=== PATIENT | male | born 2000 | race Caucasian/White ===

== ENCOUNTER 2024-11-04 04:46 | Emergency (ER) | payer BC, SELFPAY ==
[2024-11-04 04:50] VITALS: BP 137/89
[2024-11-04 05:11] VITALS: BMI 29.0
--- NOTE | 2024-11-04 06:04 | ED.GENMED ---
History of Present Illness
General
Chief Complaint: Musculo-Skeletal Complaint
Time Seen by Provider: 11/04/24 06:04
History of Present Illness
History of Present Illness:
TIME OF INITIAL ENCOUNTER: 6:05 AM
HPI: The patient presents with approximately 36 hours of distal left inner thigh pain. There is no associated swelling. He has no shortness of breath. He has a history of muscular dystrophy primarily affecting his range of motion and strength in
the upper extremities. He denies any injury.
EXAM:
GENERAL: Well appearing in no distress
HEENT: Moist oral mucosa
CARDIOVASCULAR: No murmurs, normal heart rate, regular rhythm, No chest wall tenderness
PULMONARY: No respiratory distress, breath sounds are clear and equal
ABDOMEN: Soft with no peritoneal signs, no tenderness
NEUROLOGIC: Excellent strength all extremities with exception of some chronic decreased strength in the upper extremities related to muscular dystrophy, no coordination deficits
PSYCHIATRIC: Appropriate mental status, normal insight and judgement
EXTREMITIES: Nontender, no edema, lower extremity range of motion is normal, there is some decreased active range of motion in the upper extremities which is chronic related to muscular dystrophy history, there is no tenderness at the affected area
of the distal medial left thigh
SKIN: No rash, no lesions
NUMBER AND COMPLEXITY OF PROBLEMS ADDRESSED AT THE ENCOUNTER
� Chronic conditions affecting care: Muscular dystrophy
� Acute Exacerbation and/or Progression of Chronic Illness: This is an acute problem
� Differential Diagnosis includes: Muscle strain, doubt electrolyte abnormality as the pain is localized, doubt DVT given lack of any swelling
AMOUNT AND/OR COMPLEXITY OF DATA TO BE REVIEWED AND ANALYZED
� I performed an independent evaluation of and my interpretation is:
EKG:
CT:
X-rays: Left femur x-ray negative
Laboratory Studies:
Other:
� Review of other/old records: No old records available for review
� Clinical information was obtained by an independent historian: None needed
� Prescriptions/Medications Considered but not given:
� Further testing considered but not performed:
RISK OF COMPLICATIONS AND/OR MORBIDITY OR MORTALITY OF PATIENT MANAGEMENT
� Social determinants of health affecting care: Lives at home, saw muscular dystrophy specialist in [place]
� Discussion with other providers:
� Escalation of care including admission/observation vs risk of discharge considered: Will give a dose of Toradol. At times the pain is improved spontaneously with standing but worse when he lays down. He appears comfortable
currently. Imaging was already ordered prior to my evaluation.
ANY OTHER UPDATES:
Phy Exam
Physical Exam
Physical Exam:
See HPI
Course
Orders/Labs/Results
Orders:
Orders
11/04/24 05:16
Femur, Left 2 View [CR Femur - Left Min 2 Vw] Urgent
Comment:
Reason For Exam: sudden onset pain mid left femur, no injury
11/04/24 06:13
Ketorolac [Toradol] 30 mg IM NOW STA
Vital Signs
Initial and Last Documented VS:
Initial Vital Signs
Temp Pulse Resp BP Pulse Ox
36.6 C 74 14 137/89 100
11/04/24 04:50 11/04/24 04:50 11/04/24 04:50 11/04/24 04:50 11/04/24 04:50
Last Documented Vital Signs
Temp Pulse Resp BP Pulse Ox
36.6 C 74 14 137/89 100
11/04/24 04:50 11/04/24 04:50 11/04/24 04:50 11/04/24 04:50 11/04/24 04:50
*Critical Care Note
Total Time (30-74mins, 75-104mins- exclusive of procedures): Not Applicable
ED Attending Note
-
Portions of this chart may have been created with voice recognition software.� Occasional wrong word or��sound alike� substitutions may have occurred due to the inherent limitations of voice recognition software.
Discharge Plan
Departure
Prescriptions:
No Action
lisdexamfetamine [Vyvanse] 50 mg Capsule
50 mg PO DAILY
Interventions
Interventions:
*Risk Screen - Suicide Last Done: 11/04/24 04:50
*General Assessment Last Done: 11/04/24 06:22
*Neglect/Abuse Screening Last Done: 11/04/24 06:22
ED- Fall Risk Assessment Last Done: 11/04/24 06:25
*ED COVID-19 Vaccine History Last Done: 11/04/24 06:22
ED-Musculoskeletal Assessment Last Done: 11/04/24 06:22
Discharge Date and Time
Print Language: ARMENIAN
[2024-11-04] MEDS: TORADOL 30 MG IM (06:35)
== END 2024-11-04 06:50 | disposition home or self-care (01) ==
LOC: EMR 04:46
PROVIDERS: EMERGENCY PHYSICIAN Emergency Medicine
DX: M79.652 Pain in left thigh (principal); G71.00 Muscular dystrophy, unspecified
CPT/HCPCS: 99283; 96372; 73552

== ENCOUNTER 2025-03-28 22:39 | Emergency (ER) | payer BC, SELFPAY ==
[2025-03-28 22:42] VITALS: BP 157/92
[2025-03-28 22:55] LABS: Hematocrit 43.7 % (39.0-52.0); Hemoglobin 15.4 g/dL (13.0-18.0); Mean Corp Hgb Conc. 35.2 g/dL (33.0-37.0); Mean Corpuscular Volume 87.1 fL (80.0-94.0); Nucleated Red Blood Cells % 0 % (-); Platelet Count 252 10^3/uL (130-400); Red Cell Dist. Width 12.9 % (11.5-14.5)
[2025-03-28 23:09] LABS: ALT (SGPT) 66 U/L (0-50); AST (SGOT) 59 U/L (17-59); Albumin 5.2 g/dl (3.5-5.0); Alkaline Phosphatase 46 U/L (38-126); Blood Urea Nitrogen 18 mg/dl (9-20); Calcium 10.1 mg/dl (8.4-10.2); Carbon Dioxide 29 mmol/L (22-30); Chloride 103 mmol/L (98-107); Glucose 106 mg/dl (70-99); Lipase 186 U/L (23-300); Potassium 4.2 mmol/L (3.5-5.1); Sodium 140 mmol/L (135-145); Total Protein 7.9 g/dl (6.3-8.2); eGFR > 60.00
[2025-03-28 23:10] VITALS: BMI 27.0
[2025-03-28 23:14] VITALS: BP 138/77
[2025-03-29] VITALS: BP 134/76
--- NOTE | 2025-03-29 01:02 | ED.GENMED ---
History of Present Illness
General
Chief Complaint: Abdominal Pain
Source: patient
Exam Limitations: none
Time Seen by Provider: 03/29/25 00:00
Nursing documentation reviewed up to this point in time: agreed with
History of Present Illness
History of Present Illness:
This a 24-year-old male with no past medical history who presents emergency department today with few days of intermittent left upper abdominal pain/epigastric pain. Patient reports that he is currently pain-free but the pain comes on after eating
and last around 1 to 2 hours. Patient also reports that he has had a recent unintentional weight loss of a few pounds the past week. Patient reports that he is eating the same amount of food that he normally does and denies any recent new foods
that he has tried. He denies any vomiting. He notes intermittent nausea. He denies any sick contacts. He denies any fevers or chills. He denies any rectal bleeding or blood in his stools. He notes occasional diarrhea. He has not tried cutting
out food groups to help with symptoms. He has not seen his PCP for this issue. Patient is concerned particularly about his pancreas. Patient denies any alcohol use or daily NSAID use. He denies any hemoptysis. Currently, evaluation he has no
symptoms.
Review of Systems
Review of Systems
All Other Systems: ROS reviewed and negative except as documented in HPI and ROS
Phy Exam
Physical Exam
Physical Exam:
General: Patient is well appearing and in no acute distress; non-toxic
Skin: Warm and dry, no rashes or lesions
Head: Normocephalic, atraumatic
Eyes: Sclera non-icteric. EOMs intact.
Cardiac: Regular rate and rhythm, no murmurs
Peripheral Vascular: No lower extremity swelling or edema
Pulm: Normal respiratory effort, no wheezes, rales, or rhonchi
Abdomen: Abdomen soft and nontender to palpation, normoactive bowel sounds
Neuro: CN II-XII intact, no focal neurologic deficits.
Psychiatric: Appropriate mood and affect.
Course
Orders/Labs/Results
Orders:
Orders
03/28/25 22:47
Complete Blood Count/With Diff Urgent
Comprehensive Metabolic Panel Urgent
Lipase Urgent
03/29/25 00:14
US Abdomen Complete/Upper Urgent
Comment:
Reason For Exam: epigastric pain
Abnormal Lab Results
03/28/25
22:47
Absolute Monos (auto) 0.7 H 10^3/uL
(0.1-0.6)
Monocytes % 9.6 H %
(1.7-9.3)
Creatinine 0.6 L mg/dL
(0.7-1.3)
Glucose 106 H mg/dl
(70-99)
ALT 66 H U/L
(0-50)
Albumin 5.2 H g/dl
(3.5-5.0)
03/28/25 22:47
03/28/25 22:47
Vital Signs
Initial and Last Documented VS:
Initial Vital Signs
Temp Pulse Resp BP Pulse Ox
98.2 F 76 18 157/92 100
03/28/25 22:42 03/28/25 22:42 03/28/25 22:42 03/28/25 22:42 03/28/25 22:42
Last Documented Vital Signs
Temp Pulse Resp BP Pulse Ox
98.2 F 67 18 128/74 99
03/28/25 22:42 03/29/25 01:38 03/29/25 01:38 03/29/25 01:38 03/29/25 01:38
MDM/Problems Addressed
Differential Diagnosis Includes:
ddx include IBS, glucose intolerance/celiac disease, functional abdominal pain, GERD, gastritis, pancreatitis
MDM/Problems Addressed:
This a 24-year-old male with no past medical history who presents emergency department today with few days of intermittent left upper abdominal pain/epigastric pain. This only occurs after meals. Patient has had no associated vomiting, fevers or
chills. He has no rectal bleeding or dark tarry stools. He has no vomiting. Physical exam he is well-appearing in no acute distress. He is abdomen soft and nontender. He has normoactive bowel sounds. Vital signs are stable. His blood work is
unremarkable. His lipase is normal. His ultrasound shows no evidence of biliary disease or pancreatic problems. Suspect GERD/gastritis or potentially IBS. Will initiate PPI trial and give referral for gastroenterology to see in follow-up.
Stressed follow-up with his PCP as well discussed strict return precautions. Patient stable for discharge.
Chronic conditions affecting care:
n/a
*Pulse Oximetry
SaO2: 97
Oxygen Mode of Delivery: Room air
Patient hypoxic: no
*Critical Care Note
Total Time (30-74mins, 75-104mins- exclusive of procedures): Not Applicable
Data Reviewed
Review of Other/Old Records Reveals: Records (Reviewed ER physician documentation from 11/04/2024 patient seen for acute thigh pain he had a x-ray which was normal and his pain improved)
Source: patient and records
Patient Management
Escalation/DeEscalation of care consider admission/obs:
Admit not indicated patient stable for discharge
ED Attending Note
-
Portions of this chart may have been created with voice recognition software.� Occasional wrong word or��sound alike� substitutions may have occurred due to the inherent limitations of voice recognition software.
Discharge Plan
Departure
Patient Disposition: Home (Routine Discharge)
Date of Disposition: 03/29/25
Time of Disposition: 01:25
Patient with high blood pressure during this ER visit?: Yes
Condition: Good
Discharge Problem:
Abdominal pain
Instructions: Abdominal Pain, BLOOD PRESSURE
Prescriptions:
New
pantoprazole [Protonix] 20 mg tablet,delayed release (DR/EC)
20 mg PO DAILY 14 Days Qty: 14 0RF
No Action
lisdexamfetamine [Vyvanse] 50 mg Capsule
50 mg PO DAILY
Referrals:
Sherry Madera MD [Active, Gastroenterology] - Call in 1-3 days for appt
UNKNOWN - PT DOES,NOT KNOW [Family Provider]
Activity Restrictions/Additional Instructions:
Your ultrasound did not show any evidence of pancreatic lesions or problems with the gallbladder. Your blood work was unremarkable. Your lipase was normal. Please follow-up with your primary care provider. I recommend making dietary changes to
see if this would help and withholding certain food groups. Protonix was sent to your pharmacy. Please take 1 tablet once daily for 2-week trial.
PLEASE RETURN TO EMERGENCY DEPARTMENT SHOULD YOU DEVELOP INTRACTABLE NAUSEA OR VOMITING, ACUTE WORSENING OF HER SYMPTOMS, FEVERS OR CHILLS, BLOODY DIARRHEA, DARK TARRY STOOLS, OR ANY OTHER SIGNS OR SYMPTOMS WORRISOME TO YOU.
Interventions
Interventions:
*Risk Screen - Suicide Last Done: 03/28/25 22:42
*General Assessment Last Done: 03/28/25 23:10
*Neglect/Abuse Screening Last Done: 03/28/25 22:42
*ED- Fall Risk Assessment Last Done: 03/28/25 23:10
*ED COVID-19 Vaccine History Last Done: 03/28/25 23:10
*Nursing Disposition Last Done: 03/29/25 01:38
[facility] Assessment Last Done: 03/28/25 23:17
Discharge Date and Time
Discharge Date/Time: 03/29/25 01:39
Print Language: NICARAGUAN
[2025-03-29 01:38] VITALS: BP 128/74
== END 2025-03-29 01:39 | disposition home or self-care (01) ==
LOC: EMR 22:39
PROVIDERS: Emergency Medicine; EMERGENCY PHYSICIAN Emergency Medicine
DX: R10.12 Left upper quadrant pain (principal); R10.13 Epigastric pain
CPT/HCPCS: 99284; 76700; 80053; 83690; 85025